=== PATIENT | female | born 1980 ===

== ENCOUNTER 2021-10-20 16:12 | Emergency (ER) | payer MEDICARE, OTHER ==
[~2021-10-20] VITALS: Ht 142.2 cm; Wt 73.9 kg
[2021-10-20 17:55] LABS: HEMOGLOBIN 15.7 gm/dl (12.3-15.3); RED BLOOD COUNT 5.26 M/UL (4.00-5.10); WHITE BLOOD COUNT 7.2 K/UL (4.5-11.0)
[2021-10-20 18:17] LABS: BUN/CREATININE RATIO 16 (0-10)
== END 2021-10-20 19:35 | disposition home or self-care (01) ==
LOC: ER1 16:12 → EROP 16:12 → EDSTATUS 17:39 → EROP 18:22 → ER1 19:35 → EDSTATUS 10-21 08:29
PROVIDERS: Physician Assistant
DX: U07.1 COVID-19 (principal); E03.9 Hypothyroidism, unspecified; Z90.49 Acquired absence of other specified parts of digestive tract
CPT/HCPCS: 71045; 80053; 85025; 99283

== ENCOUNTER → 2021-10-21 | Outpatient (CLI) | payer MEDICARE, OTHER ==
[~2021-10-21] VITALS: Ht 167.6 cm; Wt 73.9 kg
== END ==
LOC: EROP 10:06
DX: U07.1 COVID-19 (principal)
CPT/HCPCS: 96365